=== PATIENT | male | born 1975 | race Caucasian/White ===

== ENCOUNTER 2020-03-28 18:35 | Emergency (ER) | payer BC, SELFPAY ==
[2020-03-28 18:28] VITALS: BP 153/85; PULSE 76; RESP 15; TEMP 36.5; O2SAT 100
--- NOTE | 2020-03-28 18:37 | PC.NURSE ---
WIFES NAME LINDY AT [phone] WISHES TO BE NOTIFIED OF ANY CHANGES.
--- NOTE | 2020-03-28 18:59 | ED.ABDPAIN ---
HPI - Abdominal Pain General Chief Complaint: Abdominal Pain Stated Complaint: abd pain Time Seen by Provider: 03/28/20 18:57 History of Present Illness HPI narrative: 44 yo male w/ h/o HTN, vertigo presents c/o dizziness and abdominal pain. This afternoon he became dizzy. This then progressed to involve nausea and vomiting. This was consistent with previous episodes of vertigo. He tried meclizine and zofran without relief. He then developed epigastric and left lower quadrant pain, which is what made him decide to come be evaluated. The pain has since mostly subsided and he only notes tenderness in the LLQ with palpation. Related Data Home Medications Medication Instructions Recorded Confirmed lisinopril 5 mg PO DAILY 03/28/20 Allergies Allergy/AdvReac Type Severity Reaction Status Date / Time aspartame Allergy Mild Vomiting Verified 03/28/20 18:39 Review of Systems Review of Systems: All systems reviewed & are unremarkable except as noted in HPI and below Constitutional: Constitutional: Denies fever(s) ENT: Reports vertigo Cardiovascular: Cardiovascular: Denies chest pain Respiratory: Respiratory: Denies dyspnea Gastrointestinal: Gastrointestinal: Reports abdominal pain, Reports nausea and Reports vomiting Genitourinary: Genitourinary: Denies hematuria and Denies dysuria Musculoskeletal: Musculoskeletal: Reports back pain Neurologic: Reports vertigo, Reports headache(s), Denies numbness and Denies weakness [facility] Past Medical History Medical History (Updated 03/29/20 @ 00:01 by Harini Lubin) HTN (hypertension) Vertigo Social History Social History (Updated 03/28/20 @ 19:30 by oRdney Devine MD) Smoking status: Never smoker Exam Const: General: healthy appearing, no acute distress and alert Orientation/consciousness: patient oriented x3 HENMT: Head: normal to inspection Eyes: Pupils: Equal, round and reactive pupils present Resp: Effort & Inspection: normal respiratory effort Auscultation: clear to auscultation bilaterally Cardio: Rate: regular rate Rhythm: regular rhythm GI: GI Palp: Yes Soft to palpation and Yes Tenderness to palpation present (GI) (minimal LLQ) Skin: General skin exam: normal color Neuro: General: patient oriented x3, moves all extremities and CN's II-XI intact bilaterally Cranial nerves: Yes Nystagmus present horizontal Speech: normal speech Extrem: General: normal to inspection Course Vital Signs Vital signs: Vital Signs Temperature 36.5 C 03/28/20 18:28 Pulse Rate 76 03/28/20 18:28 Respiratory Rate 15 03/28/20 18:28 Blood Pressure 153/85 H 03/28/20 18:28 Pulse Oximetry 100 03/28/20 18:28 Temperature 36.4 C L 03/28/20 21:07 Pulse Rate 90 03/28/20 21:07 Respiratory Rate 20 03/28/20 21:07 Blood Pressure 164/93 H 03/28/20 21:07 Pulse Oximetry 97 03/28/20 21:07 MDM - Abdominal Pain MDM Narrative Medical decision making narrative: Started with usual vertigo symptoms. Nystagmus on exam supports vertigo. Abdominal pain is likely a result of vomiting. Will treat vertigo review labs and reassess abdominal exam. Medical Records Attestation: I reviewed the patient's medical records. Lab Data Attestation: I reviewed the patient's lab results. Result diagrams: 03/28/20 19:27 03/28/20 19:27 Labs: Lab Results 03/28/20 03/28/20 03/28/20 Range/Units 19:27 19:27 20:20 WBC 11.4 H (4.5-10.0) K/mm3 RBC 4.77 (4.6-6.20) M/mm3 Hgb 13.7 L (14.0-18.0) g/dL Hct 42.2 (42.0-52.0) % MCV 88.5 (80-100) fl MCH 28.7 (26-34) pg MCHC 32.5 (32-36) g/dl RDW 13.8 (11.5-14.5) % Plt Count 311 (150-375) k/mm3 MPV 10.7 H (7.4-10.4) fl Immature Gran % (Auto) 0.4 (0-0.5) % Neut % (Auto) 87.4 H (45.5-73.1) % Lymph % (Auto) 8.2 L (18.3-44.2) % [place] % (Auto) 3.3 (2.6-8.5) % Eos % (Auto) 0.2 (0-4.4) % Baso % (Auto) 0.5 (0.2-1.2)
[2020-03-28 19:01] VITALS: BP 144/99; PULSE 88; RESP 17; O2SAT 98
--- NOTE | 2020-03-28 19:04 | PC.NURSE ---
Report taken from RANDAL Chavez.
[2020-03-28] MEDS: SODIUM CHLORIDE 0.9% IV 1,000 ML 999 ML IV CONT (19:26)
--- NOTE | 2020-03-28 19:35 | PC.NURSE ---
Patient aware of need for urine sample, refusing cath. States he will try soon.
[2020-03-28 19:39] LABS: Basophils Absolute Auto 0.1 K/mm3 (0.0-0.1); Basophils Percent Auto 0.5 % (0.2-1.2); Eosinophils Percent Auto 0.2 % (0-4.4); Hematocrit 42.2 % (42.0-52.0); Hemoglobin 13.7 g/dL (14.0-18.0); Immature Granulocyte Absolute 0.04 K/mm3 (0.00-0.031); Immature Granulocyte Percent A 0.4 % (0-0.5); Lymphocytes Absolute Auto 0.93 K/mm3 (0.9-3.2); Lymphocytes Percent Auto 8.2 % (18.3-44.2); Mean Corpuscular HGB Conc 32.5 g/dl (32-36); Mean Corpuscular Hemoglobin 28.7 pg (26-34); Mean Corpuscular Volume 88.5 fl (80-100); Mean Platelet Volume 10.7 fl (7.4-10.4); Monocytes Absolute Auto 0.4 K/mm3 (0.1-0.6); Monocytes Percent Auto 3.3 % (2.6-8.5); Neutrophils Percent Auto 87.4 % (45.5-73.1); Platelet Count Result 311 k/mm3 (150-375); Red Blood Count 4.77 M/mm3 (4.6-6.20); Red Cell Distribution Width 13.8 % (11.5-14.5); White Blood Count 11.4 K/mm3 (4.5-10.0)
[2020-03-28 19:50] LABS: Alanine Aminotransferase 32 U/L (4-50); Albumin Level 4.4 g/dL (3.5-5.1); Alkaline Phosphatase 69 U/L (38-126); Aspartate Amino Transferase 22 U/L (17-59); Bilirubin,Total 0.3 mg/dL (0.2-1.3); Blood Urea Nitrogen 17 mg/dL (9-20); Carbon Dioxide 27 mmol/L (22-30); Chloride 102 mmol/L (98-107); Estimated CRCL calculation 127 ml/min; Estimated Glomerular Filt Rate > 60; Glucose 138 mg/dL (75-110); Lipase 27 U/L (23-300); Sodium 137 mmol/L (137-145)
--- NOTE | 2020-03-28 20:04 | PC.NURSE ---
Patient notified of need for urine again, states he will try.
[2020-03-28 20:36] LABS: Add Urine Microscopic? YES; Amorphous Sediment Urine Few; Appearance Urine Cloudy (Clear); Bacteria Urine Trace /hpf; Bilirubin Urine Negative (Negative); Blood Urine Negative (Negative); Color Urine Yellow (Yellow); Glucose Urine UA Negative (Negative); Ketones Urine 1+ mg/dL (Negative); Leukocyte Esterase Ur Negative LEU/UL (Negative); Mucus Urine Moderate /lpf; Nitrate Urine Negative (Negative); Protein Urine 1+ mg/dL (Negative); RBC Urine 0-2 /hpf (0-2); Squamous Epithelial Cell Urine Rare /hpf (Few); Urobilinogen Urine Negative mg/dL (<2.0); WBC Urine 0-3 /hpf
[2020-03-28 20:37] LABS: Specific Grav Ur 1.031 (1.001-1.035)
[2020-03-28 21:07] VITALS: BP 164/93; PULSE 90; RESP 20; TEMP 36.4; O2SAT 97
== END 2020-03-28 21:10 | disposition home or self-care (01) ==
PROVIDERS: Emergency Medicine; Emergency Provider Emergency Medicine; PCP Physician Assistant
DX: H81.399 Other peripheral vertigo, unspecified ear (principal); I10 Essential (primary) hypertension
CPT/HCPCS: 36415; 80053; 81001; 83690; 85025; 96361; 96374; 99284; J3360; J7030

== ENCOUNTER → 2021-01-17 10:51 | Outpatient (CLI) | payer BC, SELFPAY ==
--- NOTE | ~2021-01-17 | US_ITS ---
EXAMINATION: US thyroid DATE: 01/17/2021 11:12 INDICATION: Thyroid cyst TECHNIQUE: Multiple ultrasound images of the thyroid were obtained. COMPARISON: None. FINDINGS: The right thyroid lobe measures 4.8 x 1.6 x 1.6 cm. The left thyroid lobe measures 4.1 x 1.6 x 1.7 c m. Thyroid isthmus measures up to 4 mm in maximal thickness. There are a couple 3 mm anechoic cystic nodules at the superior right thyroid (TI-RADS 1, benign, no FNA recommended. There is otherwise norm al echotexture, echogenicity and vascular flow throughout the thyroid gland. IMPRESSION: 1. A couple benign 3 mm TI RADS 1 cystic nodules at the superior right thyroid. Reviewed, dictated and finalized at location B.
== END ==
PROVIDERS: PCP Physician Assistant; Visit Provider Physician Assistant
DX: E04.1 Nontoxic single thyroid nodule (principal)
CPT/HCPCS: 76536

== ENCOUNTER 2021-01-24 20:23 | Emergency (ER) | payer BC, SELFPAY ==
--- NOTE | ~2021-01-24 | CT_ITS ---
EXAMINATION: CT facial bones wo con EXAM DATE: 01/25/2021 00:37 INDICATION: Facial trauma, pain. TECHNIQUE: Spiral CT of the facial bones was acquired in the axial plane without contrast. Coronal reformatted images were also reviewed. The dose-length product (DLP) for this examination was 309.12 mGy-cm. The exposure was tailored according to patient size, and iterative reconstruction (ASIR) wa s used as additional dose reduction technique. There is no prior study for comparison. FINDINGS: There are no displaced acute nasal bone fractures. The mandible, sinuses and orbits are in tact. The orbits, globes and extraocular muscles are unremarkable. The visualized sinuses and mas toid air cells are well aerated. IMPRESSION: 1. No acute facial fracture. Reviewed, dictated and finalized at location A.
[2021-01-24 20:52] VITALS: BP 160/84; PULSE 73; RESP 16; TEMP 36.6; O2SAT 97
--- NOTE | 2021-01-25 00:16 | ED.HEATRA ---
HPI - Head Injury General Chief complaint: Head Injury Stated complaint: walked into doorframe. left face hurts Time Seen by Provider: 01/25/21 00:07 History of Present Illness HPI Narrative: Walking in the dark early yesterday morning and struck his left cheek on the door frame. He has had moderate pain in his face since that time. He has also had progressive swelling of the left side of his face. This morning he noted some tingling to the left cheek and lip. No vision changes or pain with eye movement. No LOC, nausea, vomiting, confusion. Related Data Home Medications Medication Instructions Recorded Confirmed lisinopril 5 mg PO DAILY 03/28/20 Allergies Allergy/AdvReac Type Severity Reaction Status Date / Time aspartame Allergy Mild Vomiting Verified 03/28/20 18:39 Review of Systems Review of Systems: All systems reviewed & are unremarkable except as noted in HPI and below Constitutional: Constitutional: Denies fever(s) and Denies weakness Eyes: Eyes: Reports as per HPI ENT: Denies dizziness Cardiovascular: Cardiovascular: Denies chest pain Respiratory: Respiratory: Denies dyspnea Gastrointestinal: Gastrointestinal: Denies nausea Neurologic: Denies confusion, Denies dizziness, Denies syncope, Reports headache(s), Reports numbness and Denies weakness [facility] Past Medical History Medical History HTN (hypertension) Vertigo Social History Social History Smoking status: Never smoker Gender identity (if verbalized by the patient): Male Exam Const: General: healthy appearing, no acute distress and alert Orientation/consciousness: patient oriented x3 HENMT: Ears: external ears normal, TM's normal bilaterally and EAC's normal General nose exam: Normal external nose present and Normal nares present Mouth: Yes lip normal Other: Mild-moderate swelling over left cheek. Sensation grossly intact Eyes: Conjunctivae: conjunctivae normal Pupils: Equal, round and reactive pupils present EOM: EOMs intact bilaterally Other: No sign of entrapments Resp: Effort & Inspection: normal respiratory effort Auscultation: clear to auscultation bilaterally Cardio: Rate: regular rate Rhythm: regular rhythm Neuro: General: patient oriented x3, moves all extremities and no focal motor deficits Cranial nerves: Yes CN's II-XII intact bilaterally and Yes Nystagmus not present Speech: normal speech Gait exam (Neuro): Normal gait present Extrem: General: normal to inspection Course Vital Signs Vital signs: Vital Signs Temperature 36.6 C 01/24/21 20:52 Pulse Rate 73 01/24/21 20:52 Respiratory Rate 16 01/24/21 20:52 Blood Pressure 160/84 H 01/24/21 20:52 Pulse Oximetry 97 01/24/21 20:52 Temperature 36.6 C 01/25/21 02:30 Pulse Rate 76 01/25/21 02:30 Respiratory Rate 16 01/25/21 02:30 Blood Pressure 147/94 H 01/25/21 02:30 Pulse Oximetry 99 01/25/21 02:30 MDM - Head Injury Differential Diagnosis Differential diagnosis: Likely concussion without loss of consciousness and other (Facial fracture, infraorbital nerve injury) Medical Records Attestation: I reviewed the patient's medical records. Imaging Data Radiologist's impression: ITS Impressions Face CT 01/25/21 07:21 IMPRESSION: 1. No acute facial fracture. Discharge Plan Discharge Clinical Impression: Contusion of face Patient Disposition: Home, Self-Care Condition: Stable Instructions: Facial Contusion (ED) Prescriptions: No Action lisinopril 5 mg Tablet 5 mg PO DAILY RF: 0 diazepam [Valium] 2 mg tablet 2 - 4 mg PO TID PRN (Reason: vertigo) Qty: 10 RF: 0 Follow-up/Referrals: Indigo,MADISON Dominguez [Primary Care Provider] -
[2021-01-25 00:22] VITALS: PULSE 76; RESP 18; TEMP 36.6; O2SAT 99
[2021-01-25 02:30] VITALS: BP 147/94; PULSE 76; RESP 16; TEMP 36.6; O2SAT 99
== END 2021-01-25 02:32 | disposition home or self-care (01) ==
PROVIDERS: Emergency Provider Emergency Medicine; PCP Physician Assistant
DX: S00.83XA Contusion of other part of head, initial encounter (principal); I10 Essential (primary) hypertension; W22.8XXA Striking against or struck by other objects, initial encounter
CPT/HCPCS: 70486; 99284

== ENCOUNTER 2021-04-08 15:56 | Outpatient (CLI) | payer BC, SELFPAY ==
[2021-04-08 16:44] LABS: D Dimer 0.27 ug/mL (<0.48)
== END 2021-04-08 15:57 | disposition home or self-care (01) ==
PROVIDERS: PCP Physician Assistant; Visit Provider Physician Assistant
DX: R06.09 Other forms of dyspnea (principal)
CPT/HCPCS: 36415; 85380